=== PATIENT | male | born 1990 | race Caucasian/White ===

== ENCOUNTER → 2019-04-09 | Outpatient (CLI) | payer OTHER | LOC: LAB 09:18 | PROVIDERS: ATTEND Nurse Practitioner Family | DX: N46.9 Male infertility, unspecified (principal) | CPT/HCPCS: 89321 ==

== ENCOUNTER → 2019-07-18 | Outpatient (CLI) | payer OTHER ==
--- NOTE | 2019-07-18 16:20 | RADIOLOGY REPORT (SQ) ---
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 TECHNIQUE: CT scan of the pelvis performed without intravenous or oral contrast. Images reviewed wi th soft tissue and bone windows. Reconstructed coronal and sagittal MPR images reviewed. All images stored on PACS. All CT scanners at this facility use dose modulation, iterative reconstruction, and/or weight based d osing when appropriate to reduce radiation dose to as low as reasonably achievable (ALARA). [facility]: Dose Right [facility]: CareDose [facility]: Dose Right [facility]: Teradose 4D [facility]: [employer] RADIATION DOSE: 7 mGy. LIMITATIONS: Artifact from lumbar fusion hardware at L4 through S1. FINDINGS: PELVIC BONES: No acute fracture. No worrisome bone lesions. VISUALIZED SPINE: No acute findings. Post fusion at L3-4, L4-5, and L5-S1 mild bilateral foraminal n arrowing at L5-S1. HIPS: No acute fracture or dislocation. No worrisome bone lesions. PELVIC SOFT TISSUES: No significant findings. No pelvic masses or adenopathy. EXTRAPELVIC SOFT TISSUES: No significant findings. Inferior most scrotum not included in the field o f view OTHER: Please note that this study does not include the kidneys or right or left renal vein. IMPRESSION: No pelvic soft tissue masses or adenopathy. TECHNICAL DOCUMENTATION: JOB ID: [id number] Quality ID # [id number]: Final reports with documentation of one or more dose reduction techniques (e.g., Au tomated exposure control, adjustment of the mA and/or kV according to patient size, use of iterative reconstruction technique) 2010 [employer]- All Rights Reserved Reading location - IP/workstation name: [email or web address]
== END ==
LOC: RAD 12:02
PROVIDERS: ATTEND Urology
DX: I86.1 Scrotal varices (principal); N43.3 Hydrocele, unspecified
CPT/HCPCS: 72192